=== PATIENT | female | born 1950 | race Caucasian/White ===

== ENCOUNTER 2018-03-18 08:35 | Day surgery (SDC) | payer MEDICARE, BC ==
[~2018-03-18 08:35] MED LIST: Lactated Ringers 1,000 ML IV SCH; Lidocaine 1%/Sod Bicarbonate in NS 8.4% 1 ML Syringe IDERM PRN; Sodium Chloride 0.9% 10 ML Syringe FLUSH PRN
--- NOTE | 2018-03-18 09:18 | PCM.PREANE ---
Preanesthetic Assessment - Procedure Proposed Procedure: Scrrening colonoscopy - Anesthesia/Transfusion/Family Hx Anesthesia History: Prior Anesthesia Without Reaction Family History of Anesthesia Reaction: No Transfusion History: No Prior Transfusion(s) - Review of Systems General: No Symptoms Pulmonary: No Symptoms Cardiovascular: No Symptoms Gastrointestinal: No Symptoms Neurological: No Symptoms Other: Reports: Anxiety - Physical Assessment NPO Status Date: 03/18/18 NPO Status Time: 04:00 (water) Pulse: 91 O2 Sat by Pulse Oximetry: 94 Respiratory Rate: 19 Blood Pressure: 139/86 Temperature: 36.6 C Height: 1.57 m Weight: 68 kg ASA Class: 2 Mental Status: Alert & Oriented x3 Airway Class: Mallampati = 2 Dentition: Reports: Missing Tooth/Teeth (2 upper left teeth missing ) Thyro-Mental Finger Breadths: 3 Mouth Opening Finger Breadths: 3 ROM/Head Extension: Full Lungs: Clear to Auscultation, Normal Respiratory Effort Cardiovascular: Regular Rate, Regular Rhythm - Allergies Allergies/Adverse Reactions: Allergies Allergy/AdvReac Type Severity Reaction Status Date / Time No Known Allergies Allergy Verified 03/17/18 15:04 - Blood Blood Available: No Product(s) Available: None - Anesthesia Plan Pre-Op Medication Ordered: None - Acknowledgements Anesthesia Type Planned: MAC Pt an Appropriate Candidate for the Planned Anesthesia: Yes Alternatives and Risks of Anesthesia Discussed w Pt/Guardian: Yes Pt/Guardian Understands and Agrees with Anesthesia Plan: Yes PreAnesthesia Questionnaire HEENT History: Reports: Allergic Rhinitis, Impaired Vision Cardiovascular History: Reports: High Cholesterol Respiratory History: Reports: Asthma, Pneumonia, Recurrent Gastrointestinal History: Reports: Colon Polyp, Other (See Below) Other Gastrointestinal History: tubular adenoma, rectal bleeding Genitourinary History: Reports: STD, Other (See Below) Other Genitourinary History: abnormal cre, chlamydia 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[employer] SIGN History: Reports: Other (See Below) Other OB/BYN History: dense breasts Musculoskeletal History: Reports: Osteoporosis Neurological History: Reports: None Psychiatric History: Reports: Anxiety, Depression Endocrine/Metabolic History: Reports: Osteoporosis, Vitamin D Deficiency Hematologic History: Reports: None Immunologic History: Reports: None Oncologic (Cancer) History: Reports: None Dermatologic History: Reports: Other (See Below) Other Dermatologic History: solar keratosis - Past Surgical History Head Surgeries/Procedures: Reports: None HEENT Surgical History: Reports: None Cardiovascular Surgical History: Reports: None Respiratory Surgical History: Reports: None GI Surgical History: Reports: Appendectomy, Colonoscopy, EGD Female Surgical History: Reports: Oophorectomy, Tubal Ligation Endocrine Surgical History: Reports: None Neurological Surgical History: Reports: None Musculoskeletal Surgical History: Reports: None Oncologic Surgical History: Reports: None Dermatological Surgical History: Reports: None - SUBSTANCE USE Smoking Status *Q: Never Smoker Second Hand Smoke Exposure: No Recreational Drug Use History: No - HOME MEDS Home Medications: Home Meds Calcium Carbonate/Vitamin D3 [Calcium 600 + Vit D 200] 1 tab PO BID 03/17/18 [ History] - CURRENT (IN HOUSE) MEDS Current Meds: Current Medications Lactated Ringer's (Ringers, Lactated) 1,000 mls @ 125 mls/hr IV ASDIRECTED JESUS Stop: 03/18/18 23:00 Lidocaine/Sodium Bicarbonate (Buffered Lidocaine 1% In Ns 8.4%) 0.25 ml IDERM ONETIME PRN PRN Reason: Prior to IV Start Stop: 03/18/18 18:00 Sodium Chloride (Saline Flush) 10 ml FLUSH ASDIRECTED PRN PRN Reason: Keep Vein Open Stop: 03/18/18 18:00
[2018-03-18] MEDS ORDERED: fentaNYL 100 MCG/2 ML SDV ONE ×2 (09:19→09:26)
[2018-03-18] MEDS ORDERED: Propofol 200 MG/20 ML SDV ONE ×2 (09:19→09:25)
[2018-03-18] MEDS ORDERED: Lidocaine 1% 0 ML ONE (09:19)
[2018-03-18] MEDS ORDERED: Lidocaine 1% 4 ML ONE (09:26)
--- NOTE | 2018-03-18 10:26 | PCM48HPAN ---
Post Anesthesia Note - EVALUATION WITHIN 48HRS OF ANESTHETIC Vital Signs in Normal Range: Yes Patient Participated in Evaluation: Yes Respiratory Function Stable: Yes Airway Patent: Yes Cardiovascular Function Stable: Yes Hydration Status Stable: Yes Pain Control Satisfactory: Yes Nausea and Vomiting Control Satisfactory: Yes Mental Status Recovered: Yes
--- NOTE | 2018-03-18 11:09 | PCM.OPNOTE ---
- General Post-Op/Procedure Note Date of Surgery/Procedure: 03/18/18 Operative Procedure(s): colonoscopy with biopsy Findings: 5 mm sessile polyp in the rectum, removed by cold forceps polypectomy Pre Op Diagnosis: screening for colorectal cancer Post-Op Diagnosis: rectal polyp Anesthesia Technique: MAC Primary Surgeon: Tarik Culver Anesthesia Provider: Lincoln Bauer Pathology: rectal polyp Complications: None Condition: Good Free Text/Narrative:: Indications for surgery: The patient is a 67 yo female, here for repeat screening colonoscopy. She had a tubular adenoma removed back in 2011 and is due for repeat colonoscopy. The patient was consented for colonoscopy with possible biopsy. Indications, risks, and benefits were discussed with the patient in detail. Description of procedure: After surgical consent was verified, the patient was brought to the main OR. A surgical time-out was performed to verify proper patient and proper procedure. Anesthesia performed monitored anesthesia care. A digital rectal exam was performed, which was normal. The colonoscope was inserted into the anus and advanced through the colon to the cecum. Location of the cecum was confirmed by presence of the appendiceal orifice, and by presence of the ileocecal valve. The scope was then withdrawn, with inspection of the colonic mucosa. There was a small 5 mm sessile rectal polyp, removed by cold forceps polypectomy. Retroflexion was performed in the rectum, which was normal. The remainder of the colon and rectum was normal. Withdrawal time was 7 minutes, including time spent performing polypectomy. Blood loss was minimal. Prep was excellent. The patient tolerated the procedure well, was brought out of anesthesia, and transported to the PACU in stable condition. Tarik Culver M.D., F.A.C.S. General Surgery Pager: [phone]
== END 2018-03-18 11:50 | disposition home or self-care (01) ==
LOC: JD.SDS 08:35
PROVIDERS: ATTEND Student in an Organized Health Care Education/Training Program
DX: Z12.11 Encounter for screening for malignant neoplasm of colon (principal); K62.1 Rectal polyp; J45.909 Unspecified asthma, uncomplicated; Z86.010 Personal history of colon polyps
CPT/HCPCS: 45380; J2704; J3010; J7120; J2001

== ENCOUNTER 2020-07-17 17:20 | Emergency (ER) | payer MEDICARE, BC ==
[2020-07-17] MEDS ORDERED: Ketorolac 30 MG/ML SDV IVPUSH ONE (17:53)
--- NOTE | 2020-07-17 17:54 | EDM.PDOC ---
ED HPI GENERAL MEDICAL PROBLEM - General Chief Complaint: Respiratory Problem Stated Complaint: FEVER,COUGH, COVID SYMPTOMS Time Seen by Provider: 07/17/20 17:37 Source of Information: Reports: Patient, RN Notes Reviewed History Limitations: Reports: No Limitations - History of Present Illness INITIAL COMMENTS - FREE TEXT/NARRATIVE: Patient is a 69-year-old female who presents to the ER for the evaluation of her fever, cough, and ongoing Covid-like symptoms. Patient notes that last week Saturday, she lost her sense of taste and smell, but the cough and fever started around this last week 07/13/2020. Notes that she is having some lower chest discomfort, that she is attributing to the increased cough. She has had a fever at home, and has been using Tylenol ibuprofen however she is not taken any of this today. Fever at the time of triage is 102.0 F. Patient's pulse is 103 bpm, respiratory rate is 16, blood pressure is 142/84, and her O2 sats are 90 to 91% on room air. Patient states that she is also experiencing nausea/vomiting/diarrhea, and pretty much any other symptoms under the sun that has been associated with COVID-19. Patient states she lives alone, she is not really sure where she could have come in contact with this. She has not been around anyone that is been known to be sick. Patient has a history of polymyalgia rheumatica and is on Plaquenil and prednisone. Her primary care providers are Marie Quezada and Dr. Patton. - Related Data Allergies Allergy/AdvReac Type Severity Reaction Status Date / Time No Known Allergies Allergy Verified 07/17/20 17:39 Home Meds: Home Meds Calcium Carbonate/Vitamin D3 [Calcium 600 + Vit D 200] 1 tab PO BID 03/17/18 [History] Past Medical History HEENT History: Reports: Allergic Rhinitis, Impaired Vision Cardiovascular History: Reports: High Cholesterol, Hypertension Respiratory History: Reports: Asthma, Pneumonia, Recurrent Gastrointestinal History: Reports: Colon Polyp, Other (See Below) Other Gastrointestinal History: tubular adenoma, rectal bleeding Genitourinary History: Reports: STD, Other (See Below) Other Genitourinary History: abnormal cre, chlamydia GRID TRIMMER History: Reports: Other (See Below) Other GRID TRIMMER History: dense breasts Musculoskeletal History: Reports: Osteoporosis, Other (See Below) (Polymyalgia Rheumatica) Psychiatric History: Reports: Anxiety, Depression Endocrine/Metabolic History: Reports: Osteoporosis, Vitamin D Deficiency Dermatologic History: Reports: Other (See Below) Other Dermatologic History: solar keratosis - Past Surgical History GI Surgical History: Reports: Appendectomy, Colonoscopy, EGD Female Surgical History: Reports: Oophorectomy, Tubal Ligation Social & Family History - Tobacco Use Tobacco Use Status *Q: Never Tobacco User Second Hand Smoke Exposure: No - Caffeine Use Caffeine Use: Reports: Coffee - Recreational Drug Use Recreational Drug Use: No ED ROS GENERAL - Review of Systems Review Of Systems: Comprehensive ROS is negative, except as noted in HPI. ED EXAM, GENERAL - Physical Exam Exam: See Below Exam Limited By: No Limitations General Appearance: Alert, WD/WN, No Apparent Distress Eye Exam: Bilateral Eye: EOMI, Normal Inspection, PERRL Throat/Mouth: Normal Inspection, Normal Lips, Normal Teeth, Normal Gums, Normal Oropharynx, Normal Voice, No Airway Compromise Head: Atraumatic, Normocephalic Neck: Normal Inspection Respiratory/Chest: No Respiratory Distress, Lungs Clear, Normal Breath Sounds, No Accessory Muscle Use, Chest Non-Tender Cardiovascular: Normal Peripheral Pulses, Regular Rate, Rhythm, No Edema Peripheral Pulses: 2+: Radial (L), Radial (R) GI/Abdominal: Normal Bowel Sounds, Soft, Non-Tender, No Distention, No Mass Extremities: Normal Inspection, Normal Capillary Refill Neurological: Alert, Oriented, Normal Cognition, No Motor/Sensory Deficits Psychiatric: Normal Affect, Normal Mood Skin Exam: Warm, Dry, Intact, Normal Color, No Rash #1 Interpretation EKG Date: 07/17/20 Time: 18:13 Rhythm: NSR Rate (Beats/Min): 92 [place]: Normal P-Wave: Present QRS: Normal ST-T: Normal QT: Normal Comparison: NA - No Prior EKG EKG Interpretation Comments: No obvious ischemia or acute ST changes noted, reviewed by myself and Dr. Mcrae. Course - Vital Signs Last Recorded V/S: Last Vital Signs Temp 102 F H 07/17/20 17:35 Pulse 103 H 07/17/20 17:35 Resp 16 07/17/20 17:35 BP 142/84 H 07/17/20 17:35 Pulse Ox 91 L 07/17/20 17:35 - Orders/Labs/Meds Orders: Active Orders 24 hr Category Date Time Status EKG Documentation Completion [RC] STAT Care 07/17/20 17:39 Ordered Peripheral IV Care [RC] . DIRECTED Care 07/17/20 17:40 Ordered Vital Signs [RC] Q15M Care 07/17/20 19:37 Ordered Chest 1V Frontal [CR] Stat Exams 07/17/20 17:39 Ordered Bamlanivimab 700 MG,Etesevimab 1,400 MG in Sodium Med 07/17/20 19:37 Ordered Chloride 0.9%(310ml) Bamlanivimab 700 mg Etesevimab [Etesevimab (EUA)] 1,400 mg Sodium Chloride 0.9% [Normal Saline] 250 ml IV ONETIME EPINEPHrine [Adrenalin] Med 07/17/20 19:37 Ordered 0.3 mg IM ONETIME PRN Famotidine [Pepcid] Med 07/17/20 19:37 Ordered 20 mg IVPUSH ONETIME PRN Sodium Chloride 0.9% [Saline Flush] Med 07/17/20 17:39 Ordered 10 ml FLUSH ASDIRECTED PRN Sodium Chloride 0.9% [Saline Flush] Med 07/17/20 19:45 Ordered 30 ml FLUSH ASDIRECTED diphenhydrAMINE [Benadryl] Med 07/17/20 19:37 Ordered 50 mg IVPUSH ONETIME PRN methylPREDNISolone Sod Succ [Solu-MEDROL] Med 07/17/20 19:37 Ordered 125 mg IVPUSH ONETIME PRN Peripheral IV Insertion Adult [OM.PC] Routine Oth 07/17/20 17:39 Ordered Medication Orders Diphenhydramine HCl (Diphenhydramine 50 Mg/Ml Sdv) 50 mg IVPUSH ONETIME PRN PRN Reason: hypersensitivity reaction Last Admin: 07/17/20 19:54 Dose: 50 mg Documented by: Epinephrine HCl (Epinephrine 1 Mg/Ml Sdv) 0.3 mg IM ONETIME PRN PRN Reason: hypersensitivity reaction Famotidine (Famotidine 20 Mg/2 Ml Sdv) 20 mg IVPUSH ONETIME PRN PRN Reason: hypersensitivity reaction Last Admin: 07/17/20 19:55 Dose: 20 mg Documented by: Bamlanivimab 700 mg/Etesevimab 1,400 mg/ Sodium Chloride 310 mls @ 310 mls/hr IV ONETIME ONE Stop: 07/17/20 20:36 Methylprednisolone Sodium Succinate (Methylprednisolone Sodium Succinate 125 Mg/2 Ml Sdv) 125 mg IVPUSH ONETIME PRN PRN Reason: hypersensitivity reaction Last Admin: 07/17/20 20:02 Dose: 125 mg Documented by: Sodium Chloride (Sodium Chloride 0.9% 10 Ml Syringe) 10 ml FLUSH ASDIRECTED PRN PRN Reason: Keep Vein Open Last Admin: 07/17/20 18:11 Dose: 10 ml Documented by: CONCEPCIÓN Sodium Chloride (Sodium Chloride 0.9% 10 Ml Syringe) 30 ml FLUSH ASDIRECTED JESUS Labs: Laboratory Tests 07/17/20 07/17/20 07/17/20 Range/Units 17:37 17:40 18:08 WBC (3.98-10.04) K/mm3 RBC (3.98-5.22) M/mm3 Hgb (11.2-15.7) gm/dl Hct (34.1-44.9) % MCV (79.4-94.8) fl MCH (25.6-32.2) pg MCHC (32.2-35.5) g/dl RDW Std Deviation (36.4-46.3) fL Plt Count (182-369) K/mm3 MPV (9.4-12.3) fl Neutrophils % (Manual) (40-60) % Band Neutrophils % (0-10) % Lymphocytes % (Manual) (20-40) % Atypical Lymphs % % Monocytes % (Manual) (2-10) % Eosinophils % (Manual) (0.7-5.8) % Basophils % (Manual) (0.1-1.2) Platelet Estimate RBC Morph Comment PT (9.7-12.0) SECONDS INR APTT (21.7-31.4) SECONDS D-Dimer, Quantitative (0.19-0.50) mg/L Puncture Site Rt radial ABG pH 7.46 H (7.35-7.45) ABG pCO2 28.7 L (35.0-45.0) mmHg ABG pO2 61.0 L (80.0-100.0) mmHg ABG HCO3 20.3 L (22.0-26.0) meq/L ABG O2 Saturation 92.2 L (96.0-97.0) % ABG Base Excess -2.2 L (-2-2.0) Nba Test Positive O2 Delivery Device Room air Sodium (136-145) mEq/L Potassium (3.5-5.1) mEq/L Chloride (98-107) mEq/L Carbon Dioxide (21-32) mEq/L Anion Gap (5-15) BUN (7-18) mg/dL Creatinine (0.55-1.02) mg/dL Est Cr Clr Drug Dosing mL/min Estimated GFR (MDRD) (>60) mL/min BUN/Creatinine Ratio (14-18) Glucose (70-99) mg/dL Lactic Acid (0.4-2.0) mmol/L Calcium (8.5-10.1) mg/dL Magnesium (1.8-2.4) mg/dL Ferritin (8-252) ng/ml Total Bilirubin (0.2-1.0) mg/dL AST (15-37) U/L ALT (14-59) U/L Alkaline Phosphatase (46-116) U/L Lactate Dehydrogenase (81-234) U/L Troponin I (0.00-0.056) ng/mL C-Reactive Protein 11.7 H* (<1.0) mg/dL NT-Pro-B Natriuret Pep (0-125) pg/mL Total Protein (6.4-8.2) g/dl Albumin (3.4-5.0) g/dl Globulin gm/dL Albumin/Globulin Ratio (1-2) Influenza Type A RNA Negative (NEGATIVE) Influenza Type B RNA Negative (NEGATIVE) SARS-CoV-2 RNA (MAXIMO) Positive H (NEGATIVE) 07/17/20 07/17/20 07/17/20 Range/Units 18:08 18:08 18:08 WBC 5.26 (3.98-10.04) K/mm3 RBC 3.71 L (3.98-5.22) M/mm3 Hgb 10.7 L D (11.2-15.7) gm/dl Hct 32.5 L (34.1-44.9) % MCV 87.6 D (79.4-94.8) fl MCH 28.8 (25.6-32.2) pg MCHC 32.9 (32.2-35.5) g/dl RDW Std Deviation 44.0 (36.4-46.3) fL Plt Count 181 L (182-369) K/mm3 MPV 8.4 L (9.4-12.3) fl Neutrophils % (Manual) 70 H (40-60) % Band Neutrophils % 1 (0-10) % Lymphocytes % (Manual) 20 (20-40) % Atypical Lymphs % 0 % Monocytes % (Manual) 8 (2-10) % Eosinophils % (Manual) 0 L (0.7-5.8) % Basophils % (Manual) 1 (0.1-1.2) Platelet Estimate Adequate RBC Morph Comment Normal PT 11.7 (9.7-12.0) SECONDS INR 1.10 APTT 31.3 (21.7-31.4) SECONDS D-Dimer, Quantitative 0.78 H (0.19-0.50) mg/L Puncture Site ABG pH (7.35-7.45) ABG pCO2 (35.0-45.0) mmHg ABG pO2 (80.0-100.0) mmHg ABG HCO3 (22.0-26.0) meq/L ABG O2 Saturation (96.0-97.0) % ABG Base Excess (-2-2.0) Nba Test O2 Delivery Device Sodium 132 L (136-145) mEq/L Potassium 4.3 (3.5-5.1) mEq/L Chloride 96 L (98-107) mEq/L Carbon Dioxide 23 (21-32) mEq/L Anion Gap 17.3 H (5-15) BUN 17 (7-18) mg/dL Creatinine 1.1 H (0.55-1.02) mg/dL Est Cr Clr Drug Dosing 38.18 mL/min Estimated GFR (MDRD) 49 (>60) mL/min BUN/Creatinine Ratio 15.5 (14-18) Glucose 104 H (70-99) mg/dL Lactic Acid (0.4-2.0) mmol/L Calcium 7.2 L D (8.5-10.1) mg/dL Magnesium 1.6 L (1.8-2.4) mg/dL Ferritin (8-252) ng/ml Total Bilirubin 0.7 (0.2-1.0) mg/dL AST 19 (15-37) U/L ALT 15 (14-59) U/L Alkaline Phosphatase 35 L (46-116) U/L Lactate Dehydrogenase 212 (81-234) U/L Troponin I < 0.017 (0.00-0.056) ng/mL C-Reactive Protein (<1.0) mg/dL NT-Pro-B Natriuret Pep (0-125) pg/mL Total Protein 6.4 (6.4-8.2) g/dl Albumin 3.0 L (3.4-5.0) g/dl Globulin 3.4 gm/dL Albumin/Globulin Ratio 0.9 L (1-2) Influenza Type A RNA (NEGATIVE) Influenza Type B RNA (NEGATIVE) SARS-CoV-2 RNA (MAXIMO) (NEGATIVE) 07/17/20 07/17/20 07/17/20 Range/Units 18:08 18:08 18:08 WBC (3.98-10.04) K/mm3 RBC (3.98-5.22) M/mm3 Hgb (11.2-15.7) gm/dl Hct (34.1-44.9) % MCV (79.4-94.8) fl MCH (25.6-32.2) pg MCHC (32.2-35.5) g/dl RDW Std Deviation (36.4-46.3) fL Plt Count (182-369) K/mm3 MPV (9.4-12.3) fl Neutrophils % (Manual) (40-60) % Band Neutrophils % (0-10) % Lymphocytes % (Manual) (20-40) % Atypical Lymphs % % Monocytes % (Manual) (2-10) % Eosinophils % (Manual) (0.7-5.8) % Basophils % (Manual) (0.1-1.2) Platelet Estimate RBC Morph Comment PT (9.7-12.0) SECONDS INR APTT (21.7-31.4) SECONDS D-Dimer, Quantitative (0.19-0.50) mg/L Puncture Site ABG pH (7.35-7.45) ABG pCO2 (35.0-45.0) mmHg ABG pO2 (80.0-100.0) mmHg ABG HCO3 (22.0-26.0) meq/L ABG O2 Saturation (96.0-97.0) % ABG Base Excess (-2-2.0) Nba Test O2 Delivery Device Sodium (136-145) mEq/L Potassium (3.5-5.1) mEq/L Chloride (98-107) mEq/L Carbon Dioxide (21-32) mEq/L Anion Gap (5-15) BUN (7-18) mg/dL Creatinine (0.55-1.02) mg/dL Est Cr Clr Drug Dosing mL/min Estimated GFR (MDRD) (>60) mL/min BUN/Creatinine Ratio (14-18) Glucose (70-99) mg/dL Lactic Acid 0.5 (0.4-2.0) mmol/L Calcium (8.5-10.1) mg/dL Magnesium (1.8-2.4) mg/dL Ferritin 275 H (8-252) ng/ml Total Bilirubin (0.2-1.0) mg/dL AST (15-37) U/L ALT (14-59) U/L Alkaline Phosphatase (46-116) U/L Lactate Dehydrogenase (81-234) U/L Troponin I (0.00-0.056) ng/mL C-Reactive Protein (<1.0) mg/dL NT-Pro-B Natriuret Pep 369 H (0-125) pg/mL Total Protein (6.4-8.2) g/dl Albumin (3.4-5.0) g/dl Globulin gm/dL Albumin/Globulin Ratio (1-2) Influenza Type A RNA (NEGATIVE) Influenza Type B RNA (NEGATIVE) SARS-CoV-2 RNA (MAXIMO) (NEGATIVE) Meds: Medications Generic Name Dose Route Start Last Admin Trade Name Freq PRN Reason Stop Dose Admin Diphenhydramine HCl 50 mg 07/17/20 19:37 07/17/20 19:54 Diphenhydramine 50 Mg/Ml Sdv IVPUSH 50 mg ONETIME PRN Administration hypersensitivity reaction Epinephrine HCl 0.3 mg 07/17/20 19:37 Epinephrine 1 Mg/Ml Sdv IM ONETIME PRN hypersensitivity reaction Famotidine 20 mg 07/17/20 19:37 07/17/20 19:55 Famotidine 20 Mg/2 Ml Sdv IVPUSH 20 mg ONETIME PRN Administration hypersensitivity reaction Bamlanivimab 700 mg/ 310 mls @ 310 mls/hr 07/17/20 19:37 Etesevimab 1,400 mg/ Sodium IV 07/17/20 20:36 Chloride ONETIME ONE Methylprednisolone Sodium Succinate 125 mg 07/17/20 19:37 07/17/20 20:02 Methylprednisolone Sodium Succinate 125 Mg/2 Ml Sdv IVPUSH 125 mg ONETIME PRN Administration hypersensitivity reaction Sodium Chloride 10 ml 07/17/20 17:39 07/17/20 18:11 Sodium Chloride 0.9% 10 Ml Syringe FLUSH 10 ml ASDIRECTED PRN Administration Keep Vein Open Sodium Chloride 30 ml 07/17/20 19:45 Sodium Chloride 0.9% 10 Ml Syringe FLUSH ASDIRECTED JESUS Discontinued Medications Generic Name Dose Route Start Last Admin Trade Name Jazmyn PRN Reason Stop Dose Admin Ketorolac Tromethamine 30 mg 07/17/20 17:53 07/17/20 18:11 Ketorolac 30 Mg/Ml Sdv IVPUSH 07/17/20 17:54 30 mg ONETIME ONE Administration - Re-Assessments/Exams Free Text/Narrative Re-Assessment/Exam: 07/17/20 17:54 Patient presents to the ER for the evaluation of her ongoing COVID-19 symptoms. She is already slightly hypoxic as her room air sats are 90 to 91% on room air. We will go ahead and get laboratory evaluation, chest x-ray, COVID-19 screen, EKG and reassess once labs have been done. 07/17/20 19:47 Laboratory evaluation has been done, CBC is unremarkable, D-dimer is slightly elevated at 0.78, patient's blood gas demonstrates a pH of 7.46 with a CO2 level of 28, PO2 level of 61, and a bicarb level of 20. Metabolic panel demonstrates slight dehydration, magnesium slightly low at 1.6, ferritin elevated to 275, troponin undetectably low. Patient CRP is 11.7. Have been monitoring the patient's O2 sats, and they have been steadily at 94 to 95% on room air at this time she does meet criterion for outpatient monoclonal antibody therapy. I spoke with the patient to provide information about bamlanivimab/etesevimab treatment. I offered them the "Patient and caregiver JARVIS bamlanivimab/etesevimab fact sheet" to read and review. I stated that the drug has been approved by an emergency use authorization (EUA) process and has not been fully FDA reviewed or approved. The patient meets the EUA requirements. I discussed there are other potential treatment options that are currently not FDA approved to treat COVID-19. I did offer an opportunity to ask questions and all questions were answered. The patient voiced understanding and agreed to proceed with the treatment. Departure - Departure Time of Disposition: 20:07 Disposition: Home, Self-Care 01 Condition: Good Clinical Impression: COVID-19, Immunosuppressed status - Discharge Information *PRESCRIPTION DRUG MONITORING PROGRAM REVIEWED*: No *COPY OF PRESCRIPTION DRUG MONITORING REPORT IN PATIENT PIOTR: No Instructions: 10 Things You Can Do to Manage Your COVID-19 Symptoms at Home - [facility] Referrals: Marie Quezada OUTSOLE TACKER [Primary Care Provider] - Forms: ED Department Discharge Additional Instructions: You were seen in the ER today for ongoing and/or worsening respiratory symptoms. Your chest x-ray showed no signs of pneumonia at this time. Your oxygen levels were acceptable at 93-95% on room air. You did test positive for COVID-19 in the ER, you were given an IV monoclonal antibody therapy treatment, to hopefully lessen the disease course of COVID-19, and to try to keep you out of the hospital or needing hospitalization. You will likely be contacted by the [facility], for quarantine purposes. Please follow all of the recommendations as set forth by the [facility]. Please try to increase your oral fluid intake, and eat multiple small meals throughout the day, to keep yourself healthy. You need to keep yourself nourished in order to fight off this disease. You can try a liquid diet like gatorade/powerade as well to get your electrolytes. You may take 500 mg Tylenol every hours 6 hours for pain/fever relief. Do not exceed 4000 mg Tylenol in a 24-hour time span. However, running a fever is your body's natural response to illness, and it allows the body to develop antibodies to disease, we are recommending trying to limit the use of Tylenol as much as possible to allow your body's natural immune response. Recommend you obtain a pulse oximeter and monitor your oxygen levels at home, you should place the monitor on your finger, and sit in a calm, quiet position for a few minutes and then record the number that is on the screen. If this consistently below 90% on room air without movement, this would be cause for concern to come back to the hospital for further management of your COVID-19 disease. Sepsis Event Note (ED) - Evaluation Sepsis Screening Result: Possible Sepsis Risk - Focused Exam Vital Signs: Vital Signs Temp Pulse Resp BP Pulse Ox 07/17/20 17:35 102 F H 103 H 16 142/84 H 91 L - My Orders Last 24 Hours: My Active Orders 07/17/20 17:39 EKG Documentation Completion [RC] STAT Chest 1V Frontal [CR] Stat Sodium Chloride 0.9% [Saline Flush] 10 ml FLUSH ASDIRECTED PRN Peripheral IV Insertion Adult [OM.PC] Routine 07/17/20 17:40 Peripheral IV Care [RC] . DIRECTED 07/17/20 19:37 Vital Signs [RC] Q15M Bamlanivimab 700 MG,Etesevimab 1,400 MG in Sodium Chloride 0.9%(310ml) Bamlanivimab 700 mg Etesevimab [Etesevimab (EUA)] 1,400 mg Sodium Chloride 0.9% [Normal Saline] 250 ml IV ONETIME EPINEPHrine [Adrenalin] 0.3 mg IM ONETIME PRN Famotidine [Pepcid] 20 mg IVPUSH ONETIME PRN diphenhydrAMINE [Benadryl] 50 mg IVPUSH ONETIME PRN methylPREDNISolone Sod Succ [Solu-MEDROL] 125 mg IVPUSH ONETIME PRN 07/17/20 19:45 Sodium Chloride 0.9% [Saline Flush] 30 ml FLUSH ASDIRECTED - Assessment/Plan Last 24 Hours: My Active Orders 07/17/20 17:39 EKG Documentation Completion [RC] STAT Chest 1V Frontal [CR] Stat Sodium Chloride 0.9% [Saline Flush] 10 ml FLUSH ASDIRECTED PRN Peripheral IV Insertion Adult [OM.PC] Routine 07/17/20 17:40 Peripheral IV Care [RC] . DIRECTED 07/17/20 19:37 Vital Signs [RC] Q15M Bamlanivimab 700 MG,Etesevimab 1,400 MG in Sodium Chloride 0.9%(310ml) Bamlanivimab 700 mg Etesevimab [Etesevimab (EUA)] 1,400 mg Sodium Chloride 0.9% [Normal Saline] 250 ml IV ONETIME EPINEPHrine [Adrenalin] 0.3 mg IM ONETIME PRN Famotidine [Pepcid] 20 mg IVPUSH ONETIME PRN diphenhydrAMINE [Benadryl] 50 mg IVPUSH ONETIME PRN methylPREDNISolone Sod Succ [Solu-MEDROL] 125 mg IVPUSH ONETIME PRN 07/17/20 19:45 Sodium Chloride 0.9% [Saline Flush] 30 ml FLUSH ASDIRECTED
[2020-07-17] MEDS: Sodium Chloride 0.9% 10 ML Syringe FLUSH PRN ×2 (18:11→20:08)
[2020-07-17 18:28] LABS: CORONAVIRUS COVID-19 NAA POSITIVE (NEGATIVE)
[2020-07-17] MEDS ORDERED: methylPREDNISolone Sodium Succinate 125 MG/2 ML SDV IVPUSH PRN (19:37)
[2020-07-17] MEDS ORDERED: diphenhydrAMINE 50 MG/ML SDV IVPUSH PRN (19:37)
[2020-07-17] MEDS ORDERED: Famotidine 20 MG/2 ML SDV IVPUSH PRN (19:37)
[2020-07-17] MEDS ORDERED: EPINEPHrine 1 MG/ML SDV IM PRN (19:37)
[2020-07-17] MEDS ORDERED: Sodium Chloride 0.9% 10 ML Syringe FLUSH SCH (19:45)
--- NOTE | 2020-07-18 07:47 | CR ---
Chest: Portable view of the chest was obtained. Comparison: Prior chest x-ray of 11/11/18. Heart size is within normal limits for portable technique. Lung markings are slightly increased which appear to be stable. Minimal atelectasis is seen within the lateral left costophrenic angle. Lungs otherwise are clear. Bony structures show mild degenerative change within the spine. No acute osseous abnormality is appreciated. Impression: 1. Slight atelectasis within the left base. 2. Other findings as noted above. Nothing acute is definitely appreciated at this time. Diagnostic code #2
== END 2020-07-17 22:58 | disposition home or self-care (01) ==
LOC: JD.ED 17:20
DX: U07.1 COVID-19 (principal); D84.9 Immunodeficiency, unspecified; E78.00 Pure hypercholesterolemia, unspecified; I10 Essential (primary) hypertension
CPT/HCPCS: 0240U; 36415; 36600; 71045; 80053; 82728; 82803; 83605; 83615; 83735; 83880; 84484; 85007; 85027; 85379; 85610; 85730; 86140; 93005; 96372; 96374; 96375; 99285; J0171; J1200; J1885; J2930; J3490; J7050; M0245; Q0245; 93010; 99284

== ENCOUNTER 2021-03-27 12:53 | Emergency (ER) | payer BC, MEDICARE ==
[2021-03-27] MEDS ORDERED: Sodium Chloride 0.9% 10 ML Syringe FLUSH PRN (13:41)
[2021-03-27] MEDS ORDERED: Alum Hydrox/Mag Hydrox/Simeth 30 ML, Lidocaine 2% 15 ML PO ONE ×2 (14:15)
[2021-03-27] MEDS ORDERED: cloNIDine 0.1 MG Tab PO ONE (15:36)
[2021-03-27] MEDS ORDERED: LORazepam 2 MG/ML SDV IVPUSH ONE (15:59)
[2021-03-27] MEDS ORDERED: Acetaminophen 325 MG Tab PO ONE (18:44)
== END 2021-03-27 19:00 | disposition home or self-care (01) ==
LOC: JD.ED 12:53
DX: I10 Essential (primary) hypertension (principal); R07.89 Other chest pain; Z86.16 Personal history of COVID-19; Z79.899 Other long term (current) drug therapy
CPT/HCPCS: 36415; 71045; 80053; 83735; 83880; 84484; 85025; 85610; 85730; 93005; 96374; 99284; A9270; J2060; 93010; 99285

== ENCOUNTER 2021-03-28 07:52 | Emergency (ER) | payer MEDICARE ==
[2021-03-28] MEDS ORDERED: Sodium Chloride 0.9% 10 ML Syringe FLUSH PRN (08:06)
[2021-03-28] MEDS ORDERED: HYDROmorphone 0.5 MG/0.5 ML Syringe IVPUSH ONE ×2 (08:07→13:46)
[2021-03-28] MEDS ORDERED: LORazepam 2 MG/ML SDV IVPUSH ONE (08:08)
[2021-03-28] MEDS ORDERED: Iopamidol 755 Mg/ML 100 ML Bottle IVPUSH ONE (08:19)
[2021-03-28] MEDS ORDERED: Sodium Chloride 0.9% 10 ML Syringe FLUSH ONE (08:19)
[2021-03-28] MEDS ORDERED: Sodium Chloride 0.9% 100 ML IV SCH (08:30)
[2021-03-28] MEDS ORDERED: Aspirin 81 MG Tab.Chew PO ONE (11:07)
[2021-03-28] MEDS ORDERED: Heparin Sodium 5,000 Units/ML Vial IVPUSH ONE (11:14)
[2021-03-28] MEDS ORDERED: Heparin Sodium/D5W 25,000 UNITS/500 ML BAG IV SCH (11:15)
[2021-03-28] MEDS ORDERED: HYDROmorphone 1 MG/ML Syringe IVPUSH ONE (11:20)
[2021-03-28] MEDS ORDERED: Metoclopramide 10 MG/2 ML SDV IVPUSH ONE (13:45)
[2021-03-28] MEDS ORDERED: Piperacillin/Tazobactam 4.5 GM in Sodium Chloride 0.9% 100 ML IV ONE (14:48)
== END 2021-03-28 15:45 ==
LOC: JD.ED 07:52
DX: I21.4 Non-ST elevation (NSTEMI) myocardial infarction (principal); K85.80 Other acute pancreatitis without necrosis or infection; D72.829 Elevated white blood cell count, unspecified; I10 Essential (primary) hypertension; J45.909 Unspecified asthma, uncomplicated; R00.0 Tachycardia, unspecified; Z20.822 Contact with and (suspected) exposure to COVID-19
CPT/HCPCS: 36415; 71260; 74177; 80053; 81001; 83690; 83880; 84443; 84484; 85025; 85610; 85730; 86140; 87040; 93005; 96365; 96366; 96367; 96375; 96376; 99285; A9270; J1170; J1644; J2060; J2543; J2765; Q9967; U0002; 93010

== ENCOUNTER 2021-04-05 15:48 | Emergency (ER) | payer MEDICARE, BC ==
[2021-04-05] MEDS ORDERED: Sodium Chloride 0.9% 10 ML Syringe FLUSH PRN (17:01)
[2021-04-05] MEDS ORDERED: Sodium Chloride 0.9% 1,000 ML IV SCH (17:15)
[2021-04-05] MEDS ORDERED: Ondansetron 4 MG Tab.DIS PO ONE (20:01)
[2021-04-05] MEDS ORDERED: Sodium Chloride 0.9% 1,000 ML IV ONE (20:30)
[2021-04-05] MEDS ORDERED: Iopamidol 612 MG/ML 100 ML Bottle IVPUSH ONE (20:46)
[2021-04-05] MEDS ORDERED: Sodium Chloride 0.9% 100 ML IV SCH (21:00)
== END 2021-04-06 00:57 | disposition home or self-care (01) ==
LOC: JD.ED 15:48
DX: R07.89 Other chest pain (principal); K56.7 Ileus, unspecified; N12 Tubulo-interstitial nephritis, not specified as acute or chronic; I10 Essential (primary) hypertension; R19.7 Diarrhea, unspecified; R74.8 Abnormal levels of other serum enzymes; Z88.8 Allergy status to other drugs, medicaments and biological substances; Z79.899 Other long term (current) drug therapy
CPT/HCPCS: 36415; 70450; 71045; 74019; 74177; 80053; 81001; 83605; 83690; 84484; 85025; 85652; 87086; 99285; A9270; J7030